=== PATIENT | female | born 2005 | race Caucasian/White ===

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

== ENCOUNTER 2023-08-20 18:32 | Emergency (ER) | payer SELFPAY | END 2023-08-20 19:30 | disposition home or self-care (01) | LOC: CC.ED 18:32 | DX: S93.601A Unspecified sprain of right foot, initial encounter (principal); Z88.1 Allergy status to other antibiotic agents; X50.0XXA Overexertion from strenuous movement or load, initial encounter; Y93.89 Activity, other specified | CPT/HCPCS: 73630-RT; 99283 ==